=== PATIENT | male | born 1955 | race Caucasian/White ===

== ENCOUNTER → 2017-07-16 | Outpatient (CLI) | payer BC ==
[~2017-07-16] MED LIST: ASPI-391; ASPI-435 PO; ATEN-175 PO; BACL10TA PO; CYM/30 PO; FLV400 PO; HYDR50TA3 PO; OMEG10007 PO; WHEATAB2 PO; [UNRECOGNIZED DRUG - REMARK]
== END | disposition home or self-care (01) ==
LOC: C.RDSM 13:15
PROVIDERS: ATTEND Orthopaedic Surgery Sports Medicine
DX: M25.561 Pain in right knee (principal); M25.562 Pain in left knee; Z96.653 Presence of artificial knee joint, bilateral

== ENCOUNTER → 2018-01-15 | Outpatient (CLI) | payer BC ==
[~2018-01-15] MED LIST changes: -CYM/30 PO; +EFF/375 PO
--- NOTE | 2018-01-15 17:32 | DIAGNOSTIC IMAGING REPORT ---
CERVICAL WITHOUT CONTRAST HISTORY: Mental status change CERVICAL RADICULOPATHY TECHNIQUE: Multiplanar multisequence MRI of the cervical spine was performed without the use of contrast. COMPARISON STUDY: None. FINDINGS: Moderate degenerative disc change throughout the entire cervical region. C2-C3: No significant central canal or neural foraminal narrowing. C3-C4: No significant central canal or neural foraminal narrowing. C4-C5: Mild broad-based disc herniation.. Minimal impact anterior cervical cord. Moderate osteophytic narrowing of the neuroforamina bilaterally. C5-C6: Mild broad-based disc bulge. No impact with the cervical cord. Moderate narrowing of the neuroforamina bilaterally. C6-C7: Mild broad-based disc herniation. Minimal impact with anterior cervical cord. Moderate to rather significant narrowing of the neuroforamina bilaterally. C7-T1: No significant central canal or neural foraminal narrowing. IMPRESSION: 1. Moderate generalized degenerative disc change throughout the entire cervical region. 2. Mild broad-based disc herniation C4-C5 and C6-C7 with minimal impact anterior cervical cord. 3. Mild broad-based bulging discs C5-C6. 4. Moderate to significant osteophytic narrowing of the neuroforamina bilaterally from C4 through C7. The above report was generated using voice recognition software. It may contain grammatical, syntax or spelling errors. Electronically signed by: Cruzito Easton M.D. 01/15/2018 5:31 PM Dictated Date/Time: 01/15/2018 5:23 PM
== END | disposition home or self-care (01) ==
LOC: C.MRIBC 16:10
PROVIDERS: ATTEND Anesthesiology
DX: M50.121 Cervical disc disorder at C4-C5 level with radiculopathy (principal); M50.30 Other cervical disc degeneration, unspecified cervical region; M48.02 Spinal stenosis, cervical region